=== PATIENT | male | born 1995 | race Caucasian/White ===

== ENCOUNTER → 2025-01-16 | Outpatient (CLI) | payer OTHER, SELFPAY ==
--- NOTE | 2025-01-16 09:30 | XR_ITS ---
Examination: Testicular sonography complete Technique: Grayscale sonographic images testes, assessment arterial inflow venous outflow, Doppler spectral analysis carful analysis Exam date and time: January 16, 2025, 0954 hrs. Indications: Diagnosis pelvicalyceal Findings: Right testis 4.8 cm epididymis 16mm 17 x 22 mm right epididymal cyst Arterial flow testicle. No testicular mass Mild hydrocele Left testis 4.4 cm epididymis 1.3 cm 4 mm, 6 mm epididymal cyst Arterial flow testicle. No testicular mass Moderate left hydrocele Impression: No testicular torsion or testicular mass Bilateral benign epididymal cysts
== END | disposition home or self-care (01) ==
PROVIDERS: Referring Provider Urology; Visit Provider Urology
DX: N50.3 Cyst of epididymis (principal)
CPT/HCPCS: 76870

== ENCOUNTER → 2025-10-02 | Outpatient (BNVA) | payer OTHER, SELFPAY | END | disposition home or self-care (01) | PROVIDERS: PCP Family Medicine; Referring Provider Family Medicine; Visit Provider Urology | DX: N50.3 Cyst of epididymis (principal) | CPT/HCPCS: 81003; 99212; G0463 ==